=== PATIENT | female | born 1955 ===

== ENCOUNTER 2023-07-25 07:53 | Outpatient (CLI) | payer OTHER | END 2023-07-25 07:58 | disposition home or self-care (01) | LOC: SONOGRAMA 07:53 | PROVIDERS: ATTEND Physical Medicine & Rehabilitation | DX: M25.512 Pain in left shoulder (principal); W19.XXXA Unspecified fall, initial encounter ==

== ENCOUNTER 2024-05-05 09:07 | Outpatient (CLI) | payer OTHER | END 2024-05-05 09:12 | disposition home or self-care (01) | LOC: RAD 09:07 | PROVIDERS: ATTEND Physical Medicine & Rehabilitation | DX: M54.50 Low back pain, unspecified (principal) ==